=== PATIENT | female | born 1955 | race African-American/Black ===

== ENCOUNTER 2022-04-14 10:21 | Inpatient (IN) | payer MEDICARE, MEDICAID ==
[~2022-04-14] VITALS: Ht 170.2 cm; Wt 63.5 kg
[~2022-04-14 10:21] MED LIST: FURO40TA5 MT; LEVO25TA7 MT; NEOSODR OP; POTA-204 PO; SPIR25TA PO
[2022-04-14] MEDS ORDERED: PREDNISONE 20MG TABLET PO STA (11:00)
[2022-04-14] MEDS ORDERED: IPRATROPIUM BROMIDE (0.02%) 0.5MG/2.5ML NEB HHN STA (11:00)
[2022-04-14] MEDS ORDERED: ALBUTEROL (0.083%) 2.5MG/3ML NEB HHN STA (11:00)
[2022-04-14] MEDS ORDERED: ALBU6.7H15 INH (12:36)
[2022-04-14] MEDS ORDERED: FURO40TA5 MT (12:36)
[2022-04-14 13:06] LABS: BASOPHILS % 0.3 % (0.0-2.0); HEMATOCRIT. 31.8 % (36.0-48.0); HEMOGLOBIN. 10.6 g/dL (12.0-16.0); LYMPHOCYTES % 39.2 % (20.0-50.0); MEAN CORPUSCULAR HEMOGLOBIN 32.8 pg (28.0-32.0); MEAN PLATELET VOLUME 8.8 fl (7.4-10.4); MONOCYTES % 6.9 % (2.0-8.0); NEUTROPHILS % 52.6 % (40.0-76.0); PLATELET 158 x1000/uL (130-400); RED BLOOD CELL COUNT 3.24 mill/uL (4.2-5.4); RED CELL DISTRIBUTION WIDTH 15.3 % (11.6-14.6)
[2022-04-14 13:21] LABS: CHLORIDE 109 mEq/L (98-107)
[2022-04-14] MEDS ORDERED: FUROSEMIDE 40MG/4ML VIAL IVP ONE (15:45)
[2022-04-14 17:52] VITALS: BP 132/87
[2022-04-14 18:10] VITALS: BP 132/87
[2022-04-14] MEDS ORDERED: ACETAMINOPHEN 325MG TABLET PO PRN (18:30)
[2022-04-14] MEDS ORDERED: IPRATROPIUM/ALBUTEROL 0.5-3(2.5)MG/3ML NEB HHN PRN (18:30)
[2022-04-14] MEDS: ENOXAPARIN 40MG/0.4ML SYR SUBCUT SCH (18:43)
[2022-04-14] MEDS: FUROSEMIDE 40MG/4ML VIAL IVP SCH (18:44)
[2022-04-14 20:00] VITALS: BP 139/71
[2022-04-14] MEDS: METHYLPREDNISOLONE SOD SUCC 40 MG/ML VIAL IV SCH (21:17)
[2022-04-15] VITALS: BP 134/81
[2022-04-15 04:00] VITALS: BP 135/82
[2022-04-15] MEDS: METHYLPREDNISOLONE SOD SUCC 40 MG/ML VIAL IV SCH ×3 (05:37→21:27)
[2022-04-15 08:00] VITALS: BP 136/88
[2022-04-15] MEDS: ENOXAPARIN 40MG/0.4ML SYR SUBCUT SCH (09:11)
[2022-04-15] MEDS: FUROSEMIDE 40MG/4ML VIAL IVP SCH (09:11)
[2022-04-15 11:43] VITALS: BP 130/72
[2022-04-15 15:43] VITALS: BP 112/67
[2022-04-15 18:11] LABS: CLARITY URINE CLEAR (CLEAR); COLOR URINE YELLOW (YELLOW); KETONES URINE NEGATIVE (NEGATIVE); LEUKOCYTE ESTERASE URINE 1+ (NEGATIVE); NITRITE URINE NEGATIVE (NEGATIVE); OCCULT BLOOD URINE NEGATIVE (NEGATIVE); PROTEIN URINE NEGATIVE (NEGATIVE); SPECIFIC GRAVITY URINE 1.006 (1.005-1.030)
[2022-04-15 18:36] LABS: *AMPHETAMINES SCREEN URINE NEGATIVE (NEGATIVE); *BARBITURATES SCREEN URINE NEGATIVE (NEGATIVE); *BENZODIAZEPINES SCREEN URINE NEGATIVE (NEGATIVE); *COCAINE SCREEN URINE NEGATIVE (NEGATIVE); CANNABINOID URINE SCREEN NEGATIVE (NEGATIVE); METHADONE URINE SCREEN NEGATIVE (NEGATIVE); OPIATES URINE SCREEN NEGATIVE (NEGATIVE); PHENCYCLIDINE URINE SCREEN NEGATIVE (NEGATIVE)
[2022-04-15 20:00] VITALS: BP 152/76
[2022-04-16] VITALS: BP 112/74
[2022-04-16 04:00] VITALS: BP 108/68
[2022-04-16] MEDS: METHYLPREDNISOLONE SOD SUCC 40 MG/ML VIAL IV SCH ×2 (05:50→14:49)
[2022-04-16] MEDS: LEVOTHYROXINE SODIUM 112MCG TABLET PO SCH (05:50)
[2022-04-16 08:00] VITALS: BP 119/67
[2022-04-16 08:05] LABS: BASOPHILS % 0.1 % (0.0-2.0); HEMATOCRIT. 29.3 % (36.0-48.0); LYMPHOCYTES % 9.8 % (20.0-50.0); MEAN CORPUSCULAR HEMOGLOBIN 32.4 pg (28.0-32.0); MEAN CORPUSCULAR VOLUME 94.8 fL (81.0-99.0); MEAN PLATELET VOLUME 9.4 fl (7.4-10.4); MONOCYTES % 3.1 % (2.0-8.0); PLATELET 167 x1000/uL (130-400); RED BLOOD CELL COUNT 3.09 mill/uL (4.2-5.4)
[2022-04-16] MEDS: ENOXAPARIN 40MG/0.4ML SYR SUBCUT SCH (08:30)
[2022-04-16] MEDS: FUROSEMIDE 40MG/4ML VIAL IVP SCH (08:30)
[2022-04-16 10:43] LABS: CHLORIDE 98 mEq/L (98-107)
[2022-04-16 12:00] VITALS: BP 111/71
[2022-04-16 16:00] VITALS: BP 106/63
[2022-04-16] MEDS: PREDNISONE 20MG TABLET PO SCH (16:47)
[2022-04-16 19:14] LABS: T4 FREE 1.21 ng/dL (0.76-1.46)
[2022-04-16 20:00] VITALS: BP 116/64
[2022-04-17] VITALS: BP 121/84
[2022-04-17 04:00] VITALS: BP 113/63
[2022-04-17] MEDS: LEVOTHYROXINE SODIUM 112MCG TABLET PO SCH (05:32)
[2022-04-17] MEDS: PREDNISONE 20MG TABLET PO SCH ×2 (07:50→17:11)
[2022-04-17 08:00] VITALS: BP 129/72
[2022-04-17] MEDS: ENOXAPARIN 40MG/0.4ML SYR SUBCUT SCH (08:45)
[2022-04-17] MEDS: FUROSEMIDE 40MG/4ML VIAL IVP SCH (08:45)
[2022-04-17 12:00] VITALS: BP 138/65
[2022-04-17] MEDS: LOSARTAN POTASSIUM 25 MG TABLET PO SCH (12:31)
[2022-04-17] MEDS: CARVEDILOL 3.125 MG TABLET PO SCH ×2 (12:32→20:15)
[2022-04-17 16:00] VITALS: BP 124/67
[2022-04-17] MEDS ORDERED: SPIR25TA PO (19:35)
[2022-04-17] MEDS ORDERED: P20 PO (19:35)
[2022-04-17] MEDS ORDERED: SACU1TAB MT (19:35)
[2022-04-17] MEDS ORDERED: FURO40TA5 MT (19:35)
[2022-04-17] MEDS ORDERED: COR3 PO (19:35)
[2022-04-17 20:00] VITALS: BP 117/79
[2022-04-18] VITALS: BP 116/75
[2022-04-18 04:00] VITALS: BP 116/70
[2022-04-18] MEDS: LEVOTHYROXINE SODIUM 112MCG TABLET PO SCH (06:34)
[2022-04-18] MEDS ORDERED: PREDNISONE 20MG TABLET PO SCH (07:10)
[2022-04-18 07:56] LABS: BASOPHILS % 0.3 % (0.0-2.0); HEMATOCRIT. 33.7 % (36.0-48.0); HEMOGLOBIN. 11.4 g/dL (12.0-16.0); MEAN CORPUSCULAR HEMOGLOBIN 32.3 pg (28.0-32.0); MEAN CORPUSCULAR VOLUME 95.6 fL (81.0-99.0); MONOCYTES % 5.9 % (2.0-8.0); NEUTROPHILS % 76.8 % (40.0-76.0); RED BLOOD CELL COUNT 3.52 mill/uL (4.2-5.4); RED CELL DISTRIBUTION WIDTH 15.5 % (11.6-14.6)
[2022-04-18 08:00] VITALS: BP 112/64
[2022-04-18 08:51] LABS: CHLORIDE 99 mEq/L (98-107)
[2022-04-18] MEDS: FUROSEMIDE 40MG/4ML VIAL IVP SCH (09:27)
[2022-04-18] MEDS: LOSARTAN POTASSIUM 25 MG TABLET PO SCH (09:28)
[2022-04-18] MEDS: ENOXAPARIN 40MG/0.4ML SYR SUBCUT SCH (09:28)
[2022-04-18] MEDS: CARVEDILOL 3.125 MG TABLET PO SCH (09:28)
[2022-04-18 09:38] LABS: MEAN PLATELET VOLUME 10.4 fl (7.4-10.4)
[2022-04-18 09:39] LABS: PLATELET 174 x1000/uL (130-400)
[2022-04-18 12:00] VITALS: BP 130/61
[2022-04-18 13:39] VITALS: BP 130/61
== END 2022-04-18 14:45 | disposition home or self-care (01) | DRG 291 ==
LOC: ER 10:45 → 7EST 15:38 → EDBEDREQSVC 15:43 → EDBEDREQ 15:43 → EDBEDREQTM 15:43 → EDBEDREQ 15:44 → EDBEDREQSVC 15:44 → ENRESERV 16:19
PROVIDERS: ADMIT Internal Medicine; ATTEND Internal Medicine
DX: I11.0 Hypertensive heart disease with heart failure (principal); I50.21 Acute systolic (congestive) heart failure; J96.00 Acute respiratory failure, unspecified whether with hypoxia or hypercapnia; J44.1 Chronic obstructive pulmonary disease with (acute) exacerbation; I42.9 Cardiomyopathy, unspecified; E03.9 Hypothyroidism, unspecified; I37.1 Nonrheumatic pulmonary valve insufficiency; I27.20 Pulmonary hypertension, unspecified; Z79.890 Hormone replacement therapy; Z88.0 Allergy status to penicillin; Z88.6 Allergy status to analgesic agent; Z86.16 Personal history of COVID-19; Z87.891 Personal history of nicotine dependence
CPT/HCPCS: 36415; 71045; 80048; 80053; 80305; 81003; 83735; 83880; 84439; 84443; 84481; 84484; 85025; 93005; 93306; 94640; 99285; J1650; J1940; J2920; J7512

== ENCOUNTER 2023-06-30 09:54 | Inpatient (IN) | payer MEDICARE, MEDICAID ==
[~2023-06-30] VITALS: Ht 170.2 cm; Wt 74.8 kg
[~2023-06-30 09:54] MED LIST changes: +ALBU6.7H15 INH; +COR3 PO; +MED4 MT; -NEOSODR OP; -POTA-204 PO; +SACU1TAB MT
[2023-06-30 11:00] LABS: BASOPHILS % 1.4 % (0.0-2.0); DIFFERENTIAL COMMENT 0; EOSINOPHILS % 1.2 % (0.0-5.0); HEMATOCRIT. 30.6 % (36.0-48.0); HEMOGLOBIN. 10.2 g/dL (12.0-16.0); LYMPHOCYTES % 39.3 % (20.0-50.0); MEAN CORPUSCULAR HEMOGLOBIN 34.3 pg (28.0-32.0); MEAN CORPUSCULAR HGB CONC 33.4 g/dL (31.0-37.0); MEAN CORPUSCULAR VOLUME 102.6 fL (81.0-99.0); MEAN PLATELET VOLUME 9.4 fl (7.4-10.4); MONOCYTES % 5.6 % (2.0-8.0); NEUTROPHILS % 52.5 % (40.0-76.0); PLATELET 154 x1000/uL (130-400); RED BLOOD CELL COUNT 2.98 mill/uL (4.2-5.4); RED CELL DISTRIBUTION WIDTH 14.5 % (11.6-14.6); WHITE BLOOD COUNT 3.7 x1000/uL (4.5-11.0)
[2023-06-30 11:13] LABS: ALANINE AMINOTRANSFERASE < 7 IU/L (10-49); ALBUMIN 4.2 g/dL (3.2-4.8); ASPARTATE AMINOTRANSFERASE 23 IU/L (<34); BILIRUBIN TOTAL 0.6 mg/dL (0.1-1.0); CALCIUM 9.4 mg/dL (8.7-10.4); CARBON DIOXIDE 26 mEq/L (21-32); CHLORIDE 105 mEq/L (98-107); CREATININE 1.4 mg/dL (0.6-1.0); GLUCOSE 114 mg/dL (70-105); POTASSIUM 3.2 mEq/L (3.5-5.1); PROTEIN TOTAL 8.1 g/dL (6.0-8.3); SODIUM 141 mEq/L (136-145); UREA NITROGEN BLOOD 11 mg/dL (9-23)
[2023-06-30 11:14] LABS: INR 1.2; PROTHROMBIN TIME 12.4 sec (9.6-11.0)
[2023-06-30 11:16] LABS: TROPONIN I HIGH SENSITIVITY 54 ng/L (3.0-34)
[2023-06-30 12:24] LABS: CLARITY URINE CLOUDY (CLEAR); COLOR URINE YELLOW (YELLOW); GLUCOSE URINE NEGATIVE (NEGATIVE); KETONES URINE NEGATIVE (NEGATIVE); LEUKOCYTE ESTERASE URINE 2+ (NEGATIVE); NITRITE URINE NEGATIVE (NEGATIVE); OCCULT BLOOD URINE NEGATIVE (NEGATIVE); PROTEIN URINE 2+ (NEGATIVE); SPECIFIC GRAVITY URINE 1.016 (1.005-1.030)
[2023-06-30 12:59] LABS: BACTERIA URINE 1+; RBC URINE 0-2 /hpf (0-2); SQUAMOUS EPITHELIAL CELL URINE 3+ /lpf (RARE/1+); WBC URINE 15-25 /hpf (0-2); YEAST URINE NONE SEEN
[2023-06-30 13:00] LABS: TRICHOMONAS URINE 2+
[2023-06-30] MEDS ORDERED: LEVOFLOXACIN 750MG PREMIX 150 ML IV ONE (13:00)
[2023-07-01 05:00] VITALS: BP 110/83; PULSE 76; RESP 18; TEMP 98.4
[2023-07-01 08:00] VITALS: BP 162/79; PULSE 95; RESP 20; TEMP 97.2
[2023-07-01] MEDS ORDERED: CEFTRIAXONE 1GM PREMIX 50 ML IV SCH (08:00)
[2023-07-01] MEDS: ENOXAPARIN 40MG/0.4ML SYR SUBCUT SCH ×2 (08:39→09:08)
[2023-07-01 10:57] LABS: DIFFERENTIAL COMMENT 0; EOSINOPHILS % 1.2 % (0.0-5.0); HEMATOCRIT. 29.4 % (36.0-48.0); HEMOGLOBIN. 9.7 g/dL (12.0-16.0); LYMPHOCYTES % 48.2 % (20.0-50.0); MEAN CORPUSCULAR HEMOGLOBIN 34.1 pg (28.0-32.0); MEAN CORPUSCULAR HGB CONC 33.2 g/dL (31.0-37.0); MEAN CORPUSCULAR VOLUME 102.8 fL (81.0-99.0); MEAN PLATELET VOLUME 9.4 fl (7.4-10.4); MONOCYTES % 6.3 % (2.0-8.0); NEUTROPHILS % 43.3 % (40.0-76.0); PLATELET 139 x1000/uL (130-400); RED BLOOD CELL COUNT 2.86 mill/uL (4.2-5.4); RED CELL DISTRIBUTION WIDTH 14.5 % (11.6-14.6); WHITE BLOOD COUNT 3.4 x1000/uL (4.5-11.0)
[2023-07-01] MEDS ORDERED: FUROSEMIDE 40MG/4ML VIAL IVP SCH (11:00)
[2023-07-01 11:29] LABS: CALCIUM 9.2 mg/dL (8.7-10.4); CREATININE 1.3 mg/dL (0.6-1.0)
[2023-07-01 11:45] LABS: POTASSIUM 2.8 mEq/L (3.5-5.1)
[2023-07-01] MEDS: FUROSEMIDE 40MG/4ML VIAL IVP SCH ×2 (11:45→16:37)
[2023-07-01] MEDS: CEFTRIAXONE 1,000 MG in DEXTROSE 5% WATER 50 ML IV SCH (11:45)
[2023-07-01 12:00] VITALS: BP 143/81; PULSE 92; RESP 20; TEMP 97.7
[2023-07-01] MEDS ORDERED: POTASSIUM CHLORIDE 20MEQ/PACKET PO NR (13:30)
[2023-07-01 16:00] VITALS: BP 108/60; PULSE 72; RESP 18; TEMP 97.8
[2023-07-01 20:00] VITALS: BP 109/67; PULSE 67; RESP 20; TEMP 97.6
[2023-07-01] MEDS ORDERED: CEFTRIAXONE 1,000 MG in DEXTROSE 5% WATER 50 ML IV SCH (22:30)
[2023-07-02] VITALS: BP 108/71; PULSE 72; RESP 20; TEMP 98.3
[2023-07-02] MEDS: IPRATROPIUM/ALBUTEROL 0.5-3(2.5)MG/3ML NEB HHN SCH (01:40)
[2023-07-02 04:00] VITALS: BP_SYST 100; BP_SYST 108; BP_DIAS 50; BP_DIAS 52; PULSE 59; PULSE 66; RESP 20; TEMP 97.7; TEMP 98.5
[2023-07-02 06:53] LABS: CALCIUM 9.1 mg/dL (8.7-10.4); CREATININE 1.3 mg/dL (0.6-1.0)
[2023-07-02 07:03] LABS: BASOPHILS % 1.7 % (0.0-2.0); DIFFERENTIAL COMMENT 0; EOSINOPHILS % 1.1 % (0.0-5.0); HEMATOCRIT. 29.3 % (36.0-48.0); LYMPHOCYTES % 59.7 % (20.0-50.0); MEAN CORPUSCULAR HEMOGLOBIN 34.8 pg (28.0-32.0); MEAN CORPUSCULAR HGB CONC 34.3 g/dL (31.0-37.0); MEAN CORPUSCULAR VOLUME 101.4 fL (81.0-99.0); MEAN PLATELET VOLUME 9.7 fl (7.4-10.4); MONOCYTES % 5.6 % (2.0-8.0); NEUTROPHILS % 31.9 % (40.0-76.0); PLATELET 134 x1000/uL (130-400); RED BLOOD CELL COUNT 2.89 mill/uL (4.2-5.4); RED CELL DISTRIBUTION WIDTH 14.6 % (11.6-14.6); WHITE BLOOD COUNT 3.5 x1000/uL (4.5-11.0)
[2023-07-02 08:00] VITALS: BP 121/68; PULSE 70; RESP 18; TEMP 97.3
[2023-07-02 08:01] LABS: POTASSIUM 2.7 mEq/L (3.5-5.1)
[2023-07-02] MEDS: FUROSEMIDE 40MG/4ML VIAL IVP SCH ×2 (08:34→17:44)
[2023-07-02] MEDS: CEFTRIAXONE 1,000 MG in DEXTROSE 5% WATER 50 ML IV SCH (11:30)
[2023-07-02 12:00] VITALS: BP 104/58; PULSE 70; RESP 18; TEMP 97.2
[2023-07-02] MEDS: POTASSIUM CHLORIDE 20MEQ TABLET SR PO SCH ×2 (13:47→21:00)
[2023-07-02] MEDS: METOPROLOL SUCCINATE 50MG ER TABLET PO SCH (14:16)
[2023-07-02 16:00] VITALS: BP 100/63; PULSE 71; RESP 18; TEMP 97
[2023-07-02 17:36] LABS: CREATINE KINASE 424 IU/L (34-145)
[2023-07-02] MEDS ORDERED: IPRATROPIUM/ALBUTEROL 0.5-3(2.5)MG/3ML NEB HHN PRN (17:45)
[2023-07-02 20:00] VITALS: BP 92/53; PULSE 68; RESP 19; TEMP 98.4
[2023-07-03] VITALS: BP 109/64; PULSE 64; RESP 19; TEMP 97.9
[2023-07-03 04:00] VITALS: BP 100/52; PULSE 66; RESP 20; TEMP 97.7
[2023-07-03 06:31] LABS: BASOPHILS % 0.7 % (0.0-2.0); EOSINOPHILS % 1.4 % (0.0-5.0); HEMATOCRIT. 28.7 % (36.0-48.0); HEMOGLOBIN. 9.9 g/dL (12.0-16.0); LYMPHOCYTES % 60.1 % (20.0-50.0); MEAN CORPUSCULAR HEMOGLOBIN 34.5 pg (28.0-32.0); MEAN CORPUSCULAR HGB CONC 34.6 g/dL (31.0-37.0); MEAN CORPUSCULAR VOLUME 99.7 fL (81.0-99.0); MEAN PLATELET VOLUME 9.2 fl (7.4-10.4); MONOCYTES % 7.6 % (2.0-8.0); NEUTROPHILS % 30.2 % (40.0-76.0); PLATELET 140 x1000/uL (130-400); RED BLOOD CELL COUNT 2.88 mill/uL (4.2-5.4); RED CELL DISTRIBUTION WIDTH 14.2 % (11.6-14.6)
[2023-07-03 06:58] LABS: CALCIUM 9.5 mg/dL (8.7-10.4); CARBON DIOXIDE 25 mEq/L (21-32); CHLORIDE 104 mEq/L (98-107); CREATININE 1.3 mg/dL (0.6-1.0); GLUCOSE 75 mg/dL (70-105); PHOSPHORUS 2.7 mg/dL (2.5-4.9); POTASSIUM 3.2 mEq/L (3.5-5.1); SODIUM 140 mEq/L (136-145); UREA NITROGEN BLOOD 15 mg/dL (9-23)
[2023-07-03 08:00] VITALS: BP 107/59; PULSE 66; RESP 18; TEMP 97.2
[2023-07-03] MEDS: IPRATROPIUM/ALBUTEROL 0.5-3(2.5)MG/3ML NEB HHN SCH (09:01)
[2023-07-03 10:12] LABS: BG BASE EXCESS 1.9 mmol/L (-2.0-2.0); BG CARBOXYHEMOGLOBIN 0.8 % (0.5-1.5); BG DEOXYHEMOGLOBIN 8.2 % (0.0-5.0); BG HCO3 ACT 25.4 mmol/L (22.0-26.0); BG METHEMOGLOBIN 0.3 % (0.0-1.5); BG OXYGEN SATURATION 91.7 % (92.0-98.5); BG OXYHEMOGLOBIN 90.7 % (94.0-97.0); BG PCO2 35.9 mmHg (35.0-45.0); BG PH 7.468 (7.350-7.450); BG PO2 60.8 mmHg (75.0-100.0); BG SAMPLE SITE LEFT BRACHIAL; BG TOTAL HEMOGLOBIN 11.2 g/dL (12.0-18.0); BG VENT MODE ROOM AIR
[2023-07-03 12:00] VITALS: BP 103/58; PULSE 62; RESP 18; TEMP 97.3
[2023-07-03] MEDS: POTASSIUM CHLORIDE 20MEQ TABLET SR PO SCH (13:46)
[2023-07-03] MEDS: FUROSEMIDE 40MG/4ML VIAL IVP SCH (13:46)
[2023-07-03] MEDS: METOPROLOL SUCCINATE 50MG ER TABLET PO SCH (13:47)
[2023-07-03 14:11] VITALS: BP 101/58; PULSE 83; TEMP 97.2; O2SAT 98
[2023-07-03] MEDS ORDERED: LIP40 MT (14:26)
[2023-07-03] MEDS ORDERED: CIPR250S3 MT (14:26)
[2023-07-04] MEDS ORDERED: LISINOPRIL 5MG TABLET PO SCH (09:00)
== END 2023-07-03 17:33 | disposition home or self-care (01) | DRG 291 ==
LOC: ER 09:54 → 8WST 12:54 → EDBEDREQ 12:59 → EDBEDREQTM 12:59
PROVIDERS: ADMIT Internal Medicine; ATTEND Internal Medicine
DX: I13.0 Hypertensive heart and chronic kidney disease with heart failure and stage 1 through stage 4 chronic kidney disease, or unspecified chronic kidney disease (principal); I50.23 Acute on chronic systolic (congestive) heart failure; J96.91 Respiratory failure, unspecified with hypoxia; N39.0 Urinary tract infection, site not specified; N17.9 Acute kidney failure, unspecified; N18.9 Chronic kidney disease, unspecified; J44.9 Chronic obstructive pulmonary disease, unspecified; E11.22 Type 2 diabetes mellitus with diabetic chronic kidney disease; E87.6 Hypokalemia; Z79.899 Other long term (current) drug therapy; Z88.0 Allergy status to penicillin; Z88.6 Allergy status to analgesic agent; Z88.8 Allergy status to other drugs, medicaments and biological substances
CPT/HCPCS: 36415; 36600; 71045; 74176; 76770; 80048; 80053; 81003; 82375; 82550; 82805; 82962; 83735; 83880; 84100; 84484; 85025; 85379; 93005; 93306; 97162; 99285; J0696; J1650; J1940; J1956; J7060